=== PATIENT | female | born 1965 | race American Indian/Alaskan Native ===

== ENCOUNTER 2018-02-16 10:15 | Outpatient (CLI) | payer BC ==
--- NOTE | 2018-02-16 10:57 | XRay Report ---
LEFT KNEE RADIOGRAPHS INDICATION: Left knee pain. COMPARISON: None similar at this institution. FINDINGS: AP, lateral and oblique left knee radiographs demonstrate intact articulation. Slight degenerative spurring. Patella micheal noted with Insall-Salvati ratio of 1.5 and modified Insall-Salvati ratio of 2.1. Normal soft tissues without evidence of suprapatellar effusion. CONCLUSION: Left patella micheal, as described. Please correlate. Thank you for the opportunity to participate in this patient's care.
== END 2018-02-16 10:16 | disposition home or self-care (01) ==
LOC: SPVIMAG 10:15
PROVIDERS: ATTEND Orthopaedic Surgery
DX: M25.562 Pain in left knee (principal)